=== PATIENT | female | born 1990 | race Hispanic/Latino ===

== ENCOUNTER 2019-06-21 18:02 | Inpatient (IN) | payer OTHER | END 2019-06-23 13:55 | disposition home or self-care (01) | LOC: LDH 18:02 → WSH 06-22 13:20 | PROC: 10E0XZZ Delivery of Products of Conception, External Approach (ICD-10-PCS; principal; ~2019-06-21) | DX: O80 Encounter for full-term uncomplicated delivery (principal); Z37.0 Single live birth; Z3A.39 39 weeks gestation of pregnancy ==

== ENCOUNTER 2020-12-25 15:56 | Observation (INO) | payer OTHER ==
[~2020-12-25] VITALS: Ht 165.1 cm; Wt 88.0 kg
[~2020-12-25 15:56] MED LIST: PREN1TAB80 PO; VALA500T42 PO
[2020-12-25] MEDS: LACTATED RINGERS 1000ML 1,000 ML IV SCH ×2 (16:40→17:30)
[2020-12-25 16:50] LABS: APPEARANCE,URINE Clear (CLEAR); BILIRUBIN,URINE Negative (NEGATIVE); COLOR,URINE Yellow (YELLOW); GLUCOSE, URINE (UA) Negative (NEGATIVE); KETONES,URINE 40 mg/dL (NEGATIVE); LEUKOCYTE ESTERASE ,URINE Negative (NEGATIVE); NITRATE,URINE Negative (NEGATIVE); OCCULT BLOOD,URINE Small (NEGATIVE); PROTEIN,URINE Negative (NEGATIVE); UROBILINOGEN,URINE 0.2 mg/dL (0.2-1.0)
[2020-12-25 17:00] LABS: BACTERIA,URINE Rare /HPF (None Seen); RBC,URINE 0-1 /HPF (0-1); SQUAMOUS EPITHELIAL CELL,UR Few /HPF (0-2); WBC,URINE 0-1 /HPF (0-1)
[2020-12-25] MEDS ORDERED: TERBUTALINE SULFATE VIAL 1MG/ML SQ SCH (19:10)
== END 2020-12-25 20:35 | disposition home or self-care (01) ==
LOC: LDH 15:56
PROVIDERS: ADMIT Obstetrics & Gynecology; ATTEND Obstetrics & Gynecology
DX: O26.893 Other specified pregnancy related conditions, third trimester (principal); R10.9 Unspecified abdominal pain; O99.891 Other specified diseases and conditions complicating pregnancy; M54.5 Low back pain; Z3A.36 36 weeks gestation of pregnancy
CPT/HCPCS: 59025; 81001; 96360; 96361 ×2; 96372; G0378 ×5; J3105; J7120

== ENCOUNTER 2021-01-07 19:22 | Inpatient (IN) | payer OTHER ==
[~2021-01-07] VITALS: Ht 165.1 cm; Wt 90.3 kg
[2021-01-07] MEDS ORDERED: LACTATED RINGERS 500 ML 500 ML IV PRN (20:00)
[2021-01-07] MEDS ORDERED: NALOXONE HCL 0.4 MG/1 ML ML IV PRN (20:00)
[2021-01-07] MEDS ORDERED: MISOPROSTOL 25 MCG TABLET VG SCH (20:00)
[2021-01-07] MEDS ORDERED: LACTATED RINGERS 1000ML 1,000 ML IV PRN (20:00)
[2021-01-07] MEDS ORDERED: EPHEDRINE SULFATE 50 MG/ML AMPULE IVP PRN (20:00)
[2021-01-07 20:14] LABS: APPEARANCE,URINE Clear (CLEAR); BILIRUBIN,URINE Negative (NEGATIVE); COLOR,URINE Yellow (YELLOW); GLUCOSE, URINE (UA) Negative (NEGATIVE); KETONES,URINE Negative (NEGATIVE); LEUKOCYTE ESTERASE ,URINE Trace (NEGATIVE); NITRATE,URINE Negative (NEGATIVE); OCCULT BLOOD,URINE Trace (NEGATIVE); PH,URINE 6.5 (5.0-8.0); PROTEIN,URINE Negative (NEGATIVE)
[2021-01-07 20:34] LABS: HEMATOCRIT 34.8 % (36-48); MEAN CORPUSCULAR HEMOGLOBIN 30.4 pg (27.0-33.0); MEAN CORPUSCULAR HGB CONC 33.3 g/dL (32.0-36.0); MEAN CORPUSCULAR VOLUME 91.1 fL (79-99); RED BLOOD CELL COUNT(AUTO) 3.82 MIL/uL (4.00-5.50); WHITE BLOOD COUNT (AUTO) 10.4 K/uL (4.8-10.8)
[2021-01-07 20:43] LABS: BACTERIA,URINE Rare /HPF (None Seen); RBC,URINE 0-1 /HPF (0-1)
[2021-01-07 20:44] LABS: SQUAMOUS EPITHELIAL CELL,UR Moderate /HPF (0-2)
[2021-01-08] MEDS ORDERED: OXYTOCIN-LR 20 UNITS/1000 ML 1,000 ML IV SCH ×2 (05:00→07:00)
[2021-01-08] MEDS ORDERED: FENTANYL CITRATE PF 50 MCG/1 ML 2ML VIAL ONE (06:58)
[2021-01-08] MEDS ORDERED: LIDOCAINE HCL MPF 1% 5ML VIAL ONE (08:39)
[2021-01-08 12:15] VITALS: BP 134/72
[2021-01-08] MEDS ORDERED: IBUPROFEN 600 MG TABLET ONE (12:34)
[2021-01-08] MEDS ORDERED: BENZOCAINE/LANOLIN/ALOE VERA 60 ML AEROSOL TP PRN (13:15)
[2021-01-08] MEDS ORDERED: WITCH HAZEL 1 PAD TP PRN (13:15)
[2021-01-08] MEDS ORDERED: ACETAMINOPHEN 325 MG TAB PO PRN (13:15)
[2021-01-08] MEDS ORDERED: DIPH,PERTUSS(ACELL),TET VAC/PF 0.5 ML VIAL IM PRN (13:15)
[2021-01-08] MEDS ORDERED: ACETAMINOPHEN-CODEINE 300/30MG TAB PO PRN (13:15)
[2021-01-08] MEDS ORDERED: LANOLIN 30GM OINTMENT TP PRN (13:15)
[2021-01-08 16:55] VITALS: BP 131/81
[2021-01-08 19:25] VITALS: BP 105/75
[2021-01-08] MEDS: DOCUSATE SODIUM 100 MG CAP PO SCH (20:22)
[2021-01-08] MEDS: IBUPROFEN 600 MG TABLET PO PRN (20:24)
[2021-01-08 23:35] VITALS: BP 104/55
[2021-01-09 03:29] VITALS: BP 97/50
[2021-01-09 07:15] LABS: HEPATITIS Bs ANTIGEN SCREEN P Negative (Negative)
[2021-01-09 07:41] VITALS: BP 93/46
[2021-01-09] MEDS: IBUPROFEN 600 MG TABLET PO PRN (08:11)
[2021-01-09] MEDS: DOCUSATE SODIUM 100 MG CAP PO SCH (08:11)
[2021-01-09 11:35] VITALS: BP 90/45
== END 2021-01-09 13:40 | disposition home or self-care (01) | DRG 807 ==
LOC: LDH 19:22 → WSH 01-08 12:12
PROVIDERS: ADMIT Obstetrics & Gynecology; ATTEND Obstetrics & Gynecology
PROC: 10E0XZZ Delivery of Products of Conception, External Approach (ICD-10-PCS; principal; 2021-01-08)
PROC: 0KQM0ZZ Repair Perineum Muscle, Open Approach (ICD-10-PCS; 2021-01-08)
PROC: 3E0R3BZ Introduction of Anesthetic Agent into Spinal Canal, Percutaneous Approach (ICD-10-PCS; 2021-01-08)
PROC: 00HU33Z Insertion of Infusion Device into Spinal Canal, Percutaneous Approach (ICD-10-PCS; 2021-01-08)
PROC: 3E033VJ Introduction of Other Hormone into Peripheral Vein, Percutaneous Approach (ICD-10-PCS; 2021-01-08)
PROC: 3E0234Z Introduction of Serum, Toxoid and Vaccine into Muscle, Percutaneous Approach (ICD-10-PCS; 2021-01-08)
DX: O69.81X0 Labor and delivery complicated by cord around neck, without compression, not applicable or unspecified (principal); Z37.0 Single live birth; O70.1 Second degree perineal laceration during delivery; Z3A.38 38 weeks gestation of pregnancy; Z23 Encounter for immunization
CPT/HCPCS: 36415; 81001; 85027; 86592; 86850; 86900; 86901; 87340; 90715; A4314; G0378; J2590; J3010; J3490

== ENCOUNTER 2023-01-06 05:00 | Inpatient (IN) | payer OTHER ==
[~2023-01-06] VITALS: Ht 165.1 cm; Wt 90.3 kg
[2023-01-06] MEDS ORDERED: PREN-196 PO (05:28)
[2023-01-06] MEDS ORDERED: VALA500T PO (05:28)
[2023-01-06] MEDS ORDERED: ROPIVACAINE 0.2% 100ML VIAL 100 ML EP SCH (05:30)
[2023-01-06] MEDS ORDERED: LACTATED RINGERS 500 ML 500 ML IV PRN (05:30)
[2023-01-06] MEDS ORDERED: LACTATED RINGERS 1000ML 1,000 ML IV PRN (05:30)
[2023-01-06] MEDS ORDERED: EPHEDRINE SULFATE 50 MG/ML AMPULE IVP PRN (05:30)
[2023-01-06] MEDS ORDERED: NALOXONE HCL 0.4 MG/1 ML ML IV PRN (05:30)
[2023-01-06 05:48] LABS: APPEARANCE,URINE CLEAR (CLEAR); BILIRUBIN,URINE NEGATIVE (NEGATIVE); COLOR,URINE COLORLESS (YELLOW); GLUCOSE, URINE (UA) NEGATIVE (NEGATIVE); KETONES,URINE NEGATIVE (NEGATIVE); LEUKOCYTE ESTERASE ,URINE NEGATIVE Leu/uL (NEGATIVE); NITRATE,URINE NEGATIVE (NEGATIVE); OCCULT BLOOD,URINE NEGATIVE (NEGATIVE); PROTEIN,URINE NEGATIVE (NEGATIVE); UROBILINOGEN,URINE 0.2 mg/dL (0.2-1.0)
[2023-01-06 05:56] LABS: HEMATOCRIT 36.1 % (36-48); MEAN CORPUSCULAR HEMOGLOBIN 28.9 pg (27.0-33.0); MEAN CORPUSCULAR VOLUME 87.6 fL (79-99); RED BLOOD CELL COUNT(AUTO) 4.12 MIL/uL (4.00-5.50); RED CELL DISTRIBUTION WIDTH 13.6 % (11.0-15.5); WHITE BLOOD COUNT (AUTO) 8.2 K/uL (4.8-10.8)
[2023-01-06] MEDS: OXYTOCIN-LR 20 UNITS/1000 ML 1,000 ML IV SCH ×2 (06:11→12:53)
[2023-01-06 06:28] VITALS: BP 111/61
[2023-01-06] MEDS ORDERED: FENTANYL CITRATE PF 50 MCG/1 ML 2ML VIAL ONE (07:27)
[2023-01-06] MEDS ORDERED: METHYLERGONOVINE MALEATE 0.2 MG/1 ML ML ONE (11:39)
[2023-01-06] MEDS ORDERED: BENZOCAINE/LANOLIN/ALOE VERA 60 ML AEROSOL TP PRN (12:30)
[2023-01-06] MEDS ORDERED: ACETAMINOPHEN 325 MG TAB PO PRN (12:30)
[2023-01-06] MEDS ORDERED: ACETAMINOPHEN WITH CODEINE 1 TAB TAB PO PRN (12:30)
[2023-01-06] MEDS ORDERED: LANOLIN 30GM OINTMENT TP PRN (12:30)
[2023-01-06] MEDS ORDERED: WITCH HAZEL 1 PAD TP PRN (12:30)
[2023-01-06 15:35] VITALS: BP 104/55
[2023-01-06] MEDS: IBUPROFEN 600 MG TABLET PO PRN (17:46)
[2023-01-06 19:09] VITALS: BP 107/50
[2023-01-06] MEDS: DOCUSATE SODIUM 100 MG CAP PO SCH (20:44)
[2023-01-06 22:17] VITALS: BP 102/50
[2023-01-07 02:16] VITALS: BP 103/58
[2023-01-07] MEDS: IBUPROFEN 600 MG TABLET PO PRN (04:40)
[2023-01-07 07:15] VITALS: BP 95/50
[2023-01-07] MEDS: DOCUSATE SODIUM 100 MG CAP PO SCH (08:43)
[2023-01-07 11:58] VITALS: BP 109/66
== END 2023-01-07 12:45 | disposition home or self-care (01) | DRG 807 ==
LOC: LDH 05:00 → WSH 15:19 → EDSTATUS 01-13 04:56
PROVIDERS: ADMIT Obstetrics & Gynecology; ATTEND Obstetrics & Gynecology
PROC: 10E0XZZ Delivery of Products of Conception, External Approach (ICD-10-PCS; principal; 2023-01-06)
PROC: 0KQM0ZZ Repair Perineum Muscle, Open Approach (ICD-10-PCS; 2023-01-06)
PROC: 10907ZC Drainage of Amniotic Fluid, Therapeutic from Products of Conception, Via Natural or Artificial Opening (ICD-10-PCS; 2023-01-06)
PROC: 3E0R3BZ Introduction of Anesthetic Agent into Spinal Canal, Percutaneous Approach (ICD-10-PCS; 2023-01-06)
PROC: 00HU33Z Insertion of Infusion Device into Spinal Canal, Percutaneous Approach (ICD-10-PCS; 2023-01-06)
DX: O70.1 Second degree perineal laceration during delivery (principal); Z37.0 Single live birth; Z3A.38 38 weeks gestation of pregnancy
CPT/HCPCS: 36415; 81003; 85027; 86592; 86850; 86900; 86901; 87340; A4314; G0378; J2210; J2590; J2795; J3010; J7120